=== PATIENT | male | born 1960 | race African-American/Black ===

== ENCOUNTER 2020-11-11 10:06 | Day surgery (SDC) | payer OTHER, SELFPAY ==
[~2020-11-11] VITALS: Ht 175.3 cm; Wt 98.4 kg
[2020-11-11] MEDS ORDERED: LIDOCAINE 2% 100 MG/5 ML UJET TP ONE ×2 (12:25→12:50)
[2020-11-11] MEDS ORDERED: fentaNYL citrate 0.05 MG/ML VIAL ONE (12:25)
[2020-11-11] MEDS ORDERED: fentaNYL citrate 0.05 MG/ML VIAL IVP ONE (12:50)
== END 2020-11-11 13:40 | disposition home or self-care (01) ==
LOC: MDS 10:06 → MMU 10:14 → MDS 13:40
PROVIDERS: ATTEND Internal Medicine Gastroenterology
DX: Z12.11 Encounter for screening for malignant neoplasm of colon (principal); D12.8 Benign neoplasm of rectum; K57.30 Diverticulosis of large intestine without perforation or abscess without bleeding; G89.29 Other chronic pain; Z79.899 Other long term (current) drug therapy; Z20.822 Contact with and (suspected) exposure to COVID-19
CPT/HCPCS: 45385; J3010; U0003